=== PATIENT | female | born 1945 | race Caucasian/White ===

== ENCOUNTER 2017-04-10 09:31 | Inpatient (IN) | payer MEDICARE, OTHER ==
[~2017-04-10 09:31] MED LIST: Gabapentin 300 MG Cap PO ONE; Gentamicin 40 MG/ML 2 ML Vial ONE; Midazolam 1 MG/ML 2 ML SDV ONE; Povidone-Iodine 10% Soln 118.25 ML Bottle ONE; Propofol 200 MG/20 ML SDV ONE; Scopolamine 1.5 MG Transdermal Patch TOP SCH; fentaNYL 100 MCG/2 ML SDV ONE
[2017-04-10] MEDS ORDERED: Lactated Ringers 1,000 ML IV SCH (10:00)
[2017-04-10] MEDS ORDERED: ceFAZolin 2 GM in Sodium Chloride 0.9% 50 ML IV ONE (11:30)
[2017-04-10] MEDS ORDERED: Ropivacaine 49.25 ML, Ketorolac 30 MG, EPINEPHrine 0.5 MG, cloNIDine 80 MCG, Sodium Chl... INJECT ONE ×5 (11:45)
[2017-04-10] MEDS ORDERED: Ketamine 500 MG/5 ML MDV IV SCH (11:45)
[2017-04-10] MEDS: Tranexamic Acid 660 MG in Sodium Chloride 0.9% 50 ML IV SCH ×3 (12:06→13:48)
[2017-04-10] MEDS ORDERED: Propofol 200 MG/20 ML SDV ONE (12:21)
[2017-04-10] MEDS ORDERED: Lactated Ringers 1,000 ML ONE (12:41)
[2017-04-10] MEDS ORDERED: traMADol 50 MG Tab PO PRN (13:16)
[2017-04-10] MEDS ORDERED: Aluminum Hydroxide/Magnesium Hydroxide/Simethicone Susp 30 ML Cup PO PRN (13:16)
[2017-04-10] MEDS ORDERED: Diazepam 5 MG Tab PO PRN (13:16)
[2017-04-10] MEDS ORDERED: Naloxone 0.4 MG/ML SDV IVPUSH PRN (13:16)
[2017-04-10] MEDS ORDERED: Magnesium Hydroxide 400 MG/5 ML Susp 30 ML Cup PO PRN (13:16)
[2017-04-10] MEDS ORDERED: Sennosides 8.6 MG Tab PO PRN (13:16)
[2017-04-10] MEDS ORDERED: Ketorolac 30 MG/ML SDV IVPUSH PRN (13:16)
[2017-04-10] MEDS ORDERED: Ondansetron 4 MG/2 ML SDV IVPUSH PRN (13:16)
[2017-04-10] MEDS ORDERED: oxyCODONE 5 MG Tab PO PRN (13:16)
[2017-04-10] MEDS ORDERED: diphenhydrAMINE 50 MG/ML SDV IVPUSH PRN (13:16)
[2017-04-10] MEDS ORDERED: Morphine 2 MG/ML Syringe IVPUSH PRN (13:16)
[2017-04-10] MEDS ORDERED: Bisacodyl 5 MG Tab PO PRN (13:16)
[2017-04-10] MEDS ORDERED: Zolpidem 5 MG Tab PO PRN (13:16)
[2017-04-10] MEDS ORDERED: Acetaminophen 1,000 MG in Premix Bag 1 BAG IV ONE (13:30)
[2017-04-10] MEDS ORDERED: ceFAZolin 2 GM in Sodium Chloride 0.9% 50 ML IV SCH (13:30)
--- NOTE | 2017-04-10 13:34 | CR ---
Knee 1V or 2V Rt HISTORY: RIGHT TOTAL KNEE FINDINGS: Postoperative position and alignment right total knee arthroplasty with patella resurfacing appear sa tisfactory. No complication can be seen. Anterior skin lazaro are noted. Air in the joint is consist ent with the postoperative state. IMPRESSION: Satisfactory postoperative position and alignment right total knee arthroplasty with patella resurfac ing. No complication identified.
[2017-04-10] MEDS: VERIFY SCOPOLAMINE PATCH TOP SCH (16:34)
[2017-04-10] MEDS: ceFAZolin 2 GM in Sodium Chloride 0.9% 50 ML IV SCH (17:34)
[2017-04-10] MEDS: Acetaminophen/oxyCODONE 325-5 MG Tab PO PRN ×2 (17:35→23:09)
[2017-04-10] MEDS: Simvastatin 20 MG Tab PO SCH (17:36)
--- NOTE | 2017-04-10 19:26 | OR ---
DATE OF PROCEDURE: 04/10/2017 PREOPERATIVE DIAGNOSIS: Right knee primary osteoarthritis. POSTOPERATIVE DIAGNOSIS: Right knee primary osteoarthritis. PROCEDURE: Right knee total knee arthroplasty. MOVING PICTURE OPERATOR: BETTY Cortes. ANESTHESIA: Spinal sedation plus conscious sedation. FLUID: Lactated Ringer solution. ESTIMATED BLOOD LOSS: Less than 25 mL. COMPLICATIONS: None. SPECIMEN: None. DISCHARGE DISPOSITION: Stable to PACU. INSTRUMENTATION: Biomet Vanguard knee 62.5 mm femur, 34 mm patella, 67 mm tibial plate, 12 mm anterior stabilized tibial bearing polyethylene tibial insert. INDICATIONS: The patient is seen preoperatively in the clinic. She failed nonoperative treatment. Preoperative imaging confirmed the above-mentioned diagnosis. Risks and benefits of the procedure were explained to the patient. Informed consent was obtained. DETAILS OF PROCEDURE: The patient was seen preoperatively by myself and the Anesthesia staff in the preoperative holding area where the operative site was marked. She was brought to the operative suite by the anesthesia staff where spinal sedation was administered as well as conscious sedation. The right lower extremity had a well-padded tourniquet placed on the right thigh. The right lower extremity was then prepped and draped in a sterile manner. Time-out was called identifying the correct patient, correct procedure, the correct site, and antibiotics had begun within appropriate period of time. The right lower extremity was exsanguinated. Tourniquet was raised to 250 mmHg for 40 minutes and let down after cementing. A midline incision was made from the tibial tubercle three fingerbreadths proximal to the patella down to the deep fascia. A medial parapatellar arthrotomy was then made. Bleeding was controlled with Bovie electrocautery as well as an Aquamantys unit. The medial and proximal tibia were exposed using Bovie electrocautery. The infrapatellar fat pad was removed and a full synovectomy was performed. The patella was then everted, the knee flexed and then two perpendicular cuts were used on the patella. This measured 34 mm. Three holes were drilled in tibial. The patella trial was inserted. We then flexed the knee. I used a rongeur in the notch and then reamed the distal femur and then placed the intramedullary guide with a 9 mm distal cut at 5 degree valgus. I then pinned that guide in place and made my distal cut. I then removed the guide and then placed posterior condylar guide measuring 62.5. I then drilled holes for my chamfer block. I then removed the guide, placed the chamfer block and then made my anterior and posterior chamfer cuts. After that had been accomplished, I used an extramedullary guide in line with the tibial tubercle down to the 2nd ray and made my proximal tibia cut. I then used a laminar site acquisition manager medially and laterally to expose the posterior condyles. I then took osteophytes off medially and laterally using a curved osteotome. I removed any extra meniscus as well as extra synovium. I then anteriorized the tibia again, placed my tibial baseplate, which was pinned in place. I then reamed the proximal tibia and then tamped for the fins. I then inserted my femoral component and drilled the lugs for and inserted a 10 mm spacer, which provided good stability throughout range of motion. After we confirmed that, there was good range of motion of the knee with polyethylene trial inserted. We then removed all components, copiously irrigated with saline and then dried. We then cemented all of the components in place and kept the knee out in extension. While the cement dried, I let down the tourniquet to 40 minutes. After the cement had dried, I removed the polyethylene trial, removed any extra cement with the osteotome in any extra soft tissue that I saw with the Bovie electrocautery unit. We then inserted a 12 polyethylene trial which provided good stability, so I decided to use this as a final component. We inserted the final component and then placed the locking clip in. We then copiously irrigated with saline, tested range of motion, which was good and then we closed with two #5 Ethibond as well as #1 Stratafix and 3-0 Stratafix, followed by skin lazaro and a sterile dressing. The patient was then transferred to our hospital bed and taken to the PACU in stable condition. Sacha Hamilton DO /[id number]
[2017-04-10] MEDS ORDERED: Docusate Sodium 100 MG Cap PO SCH (21:00)
[2017-04-10] MEDS: Docusate Sodium 100 MG Cap PO SCH (23:06)
[2017-04-11] MEDS: ceFAZolin 2 GM in Sodium Chloride 0.9% 50 ML IV SCH ×2 (01:57→09:04)
[2017-04-11] MEDS: Acetaminophen/oxyCODONE 325-5 MG Tab PO PRN ×4 (07:38→21:24)
[2017-04-11] MEDS ORDERED: Non-Formulary Medication 1 Each (Gluc 2kcl/Chondr/Coll Hy/Hy Ac [Glucosamine & Chondroitin PO SCH (09:00)
[2017-04-11] MEDS ORDERED: Sodium Chloride 0.9% 10 ML Syringe FLUSH SCH (09:00)
[2017-04-11] MEDS ORDERED: atorvaSTATin 20 MG Tab PO SCH ×2 (09:00)
[2017-04-11] MEDS ORDERED: Non-Formulary Medication 1 Each (Simvastatin [Zocor] 40 MG) PO SCH (09:00)
[2017-04-11] MEDS ORDERED: Non-Formulary Medication 1 Each (Multivitamin [Multivitamins] 1 TAB) PO SCH (09:00)
[2017-04-11] MEDS: Docusate Sodium 100 MG Cap PO SCH ×2 (09:03→21:24)
[2017-04-11] MEDS: Multivitamins with Iron/Calcium/Folic Acid/Minerals Tab PO SCH (09:04)
[2017-04-11] MEDS: Fish Oil/Omega-3 Fatty Acids 1 Gm Cap PO SCH (09:04)
[2017-04-11] MEDS: Calcium Carbonate/Vitamin D3 1500 MG-400 Units Tab PO SCH (09:04)
[2017-04-11] MEDS: VERIFY SCOPOLAMINE PATCH TOP SCH (09:06)
[2017-04-11] MEDS: GLUCOSAMINE PO SCH (09:06)
[2017-04-11] MEDS: CHONDROITIN PO SCH (09:06)
--- NOTE | 2017-04-11 11:36 | PCM.PN ---
- General Info Date of Service: 04/11/17 Admission Dx/Problem (Free Text): at the pleasure of visiting with patient today in the hospital. She is status postop 1 day of right total knee replaced. She is doing very well. Patient continues to ambulate without any assistance. Pain is under control with oral pain medication. She is no issues at this time. Functional Status: Reports: Pain Controlled, Tolerating Diet, Ambulating, Urinating - Patient Data Vitals - Most Recent: Last Vital Signs Temp 36.3 C 04/11/17 11:17 Pulse 53 L 04/11/17 11:17 Resp 16 04/11/17 11:17 BP 117/82 04/11/17 11:17 Pulse Ox 97 04/11/17 11:17 Weight - Most Recent: 144 lb 12.8 oz I&O - Last 24 Hours: Intake & Output 04/10/17 04/11/17 04/11/17 22:59 06:59 14:59 Intake Total 910 051 5045 Output Total 900 1175 650 Balance -374 -669 650 Lab Results Last 24 Hours: Laboratory Results - last 24 hr 04/11/17 04/11/17 Range/Units 05:15 05:15 WBC 9.2 (4.5-11.0) K/uL RBC 3.67 (3.30-5.50) M/uL Hgb 11.6 L (12.0-15.0) g/dL Hct 36.7 (36.0-48.0) % MCV 100 H (80-98) fL MCH 32 H (27-31) pg MCHC 32 (32-36) % Plt Count 614 H (150-400) K/uL Neut % (Auto) 62 (36-66) % Lymph % (Auto) 27 (24-44) % [place] % (Auto) 8 H (2-6) % Eos % (Auto) 3 (2-4) % Baso % (Auto) 0 (0-1) % Sodium 139 L (140-148) mmol/L Potassium 4.2 (3.6-5.2) mmol/L Chloride 107 (100-108) mmol/L Carbon Dioxide 24 (21-32) mmol/L Anion Gap 12.2 (5.0-14.0) mmol/L BUN 21 H (7-18) mg/dL Creatinine 0.8 (0.6-1.0) mg/dL Est Cr Clr Drug Dosing 51.81 mL/min Estimated GFR (MDRD) > 60 (>60) Glucose 93 (74-106) mg/dL Calcium 8.3 L (8.5-10.1) mg/dL Total Bilirubin 0.2 (0.2-1.0) mg/dL AST 28 D (15-37) U/L ALT 31 (12-78) U/L Alkaline Phosphatase 50 (46-116) U/L Total Protein 5.7 L (6.4-8.2) g/dL Albumin 2.8 L (3.4-5.0) g/dL Globulin 2.9 (2.3-3.5) g/dL Albumin/Globulin Ratio 1.0 L (1.2-2.2) Med Orders - Current: Current Medications Al Hydroxide/Mg Hydroxide (Mag-Al Plus) 30 ml PO Q4H PRN PRN Reason: Constipation Aspirin (Ecotrin) 325 mg PO DAILY [facility] Bisacodyl (Dulcolax) 10 mg PO DAILY PRN PRN Reason: Constipation Calcium Carbonate (Caltrate 600+D 1500 Mg-400 Units) 1 tab PO DAILY [facility] Last Admin: 04/11/17 09:04 Dose: 1 tab Diazepam (Valium.) 5 mg PO Q6H PRN PRN Reason: Spasms Diphenhydramine HCl (Benadryl) 25 mg IVPUSH Q4H PRN PRN Reason: Itching Docusate Sodium (Colace) 100 mg PO BID [facility] Last Admin: 04/11/17 09:03 Dose: 100 mg Fish Oil (Fish Oil) 1 gm PO DAILY [facility] Last Admin: 04/11/17 09:04 Dose: 1 gm Lactated Ringer's (Ringers, Lactated) 1,000 mls @ 100 mls/hr IV ASDIRECTED [facility] Last Admin: 04/10/17 10:37 Dose: 100 mls/hr Ketorolac Tromethamine (Toradol) 15 mg IVPUSH Q8H PRN PRN Reason: Pain Stop: 04/15/17 13:17 Magnesium Hydroxide (Milk Of Magnesia) 30 ml PO BID PRN PRN Reason: Constipation Morphine Sulfate (Morphine) 2 mg IVPUSH Q2H PRN PRN Reason: Pain Multivitamins/Minerals (Thera M Plus) 1 tab PO DAILY [facility] Last Admin: 04/11/17 09:04 Dose: 1 tab Naloxone HCl (Narcan) 0.1 mg IVPUSH ONETIME PRN PRN Reason: Oversedation Verify Scopolamine (Patch) 0 each TOP DAILY [facility] Last Admin: 04/11/17 09:06 Dose: Not Given Glucosamine & (Chondroitin*Pom*) 1 tab PO DAILY [facility] Last Admin: 04/11/17 09:06 Dose: Not Given Ondansetron HCl (Zofran) 8 mg IVPUSH Q4H PRN PRN Reason: Nausea/Vomiting Oxycodone HCl (Oxycodone) 10 mg PO Q4H PRN PRN Reason: Pain Stop: 04/11/17 13:17 Oxycodone/Acetaminophen (Percocet 325-5 Mg) 2 tab PO Q4H PRN PRN Reason: Pain Last Admin: 04/11/17 07:38 Dose: 1 tab Scopolamine (Transderm-Scop) 1.5 mg TOP Q72H [facility] Stop: 04/13/17 07:30 Last Admin: 04/10/17 09:50 Dose: 1.5 mg Senna (Senna) 8.6 mg PO BID PRN PRN Reason: Constipation Simvastatin (Zocor) 40 mg PO DAILY@1800 [facility] Last Admin: 04/10/17 17:36 Dose: 40 mg Sodium Chloride (Saline Flush) 10 ml FLUSH DAILY [facility] Last Admin: 04/11/17 09:05 Dose: 10 ml Tramadol HCl (Ultram) 100 mg PO Q6H PRN PRN Reason: Pain Zolpidem Tartrate (Ambien) 5 mg PO BEDTIME PRN PRN Reason: Sleep Last Admin: 04/10/17 23:09 Dose: 5 mg Discontinued Medications Aspirin (Ecotrin) 325 mg PO DAILY [facility] Atorvastatin Calcium (Lipitor) 20 mg PO DAILY [facility] Atorvastatin Calcium (Lipitor) 20 mg PO DAILY [facility] Ropivacaine 49.25 ml/Ketorolac Tromethamine 30 mg/Epinephrine HCl 0.5 mg/ Clonidine HCl 80 mcg/ Sodium Chloride 48.45 ml 0 ml INJECT ONETIME ONE Stop: 04/10/17 11:46 Last Admin: 04/10/17 12:06 Dose: 100 ml Docusate Sodium (Colace) 100 mg PO BID [facility] Fentanyl (Sublimaze) Confirm Administered Dose 100 mcg .ROUTE .K-MED ONE Stop: 04/10/17 08:56 Gabapentin (Neurontin) 300 mg PO ONETIME ONE Stop: 04/10/17 09:31 Last Admin: 04/10/17 09:50 Dose: 300 mg Gentamicin Sulfate (Gentamicin) Confirm Administered Dose 240 mg .ROUTE .STK- [facility] ONE Stop: 04/10/17 06:33 Last Admin: 04/10/17 12:11 Dose: 240 mg Cefazolin Sodium 2 gm/ Sodium (Chloride) 50 mls @ 100 mls/hr IV ONETIME ONE Stop: 04/10/17 11:59 Last Admin: 04/10/17 11:18 Dose: 100 mls/hr Tranexamic Acid 660 mg/ Sodium (Chloride) 56.6 mls @ 226.4 mls/hr IV Q3H [facility] Stop: 04/10/17 14:59 Last Admin: 04/10/17 13:48 Dose: Not Given Lactated Ringer's (Ringers, Lactated) Confirm Administered Dose 1,000 mls @ as directed .ROUTE .[facility] ONE Stop: 04/10/17 12:42 Acetaminophen 1,000 mg/ Premix 100 mls @ 400 mls/hr IV NOW ONE Stop: 04/10/17 13:44 Last Admin: 04/10/17 13:31 Dose: 400 mls/hr Cefazolin Sodium 2 gm/ Sodium (Chloride) 50 mls @ 100 mls/hr IV Q8H [facility] Stop: 04/11/17 05:59 Last Admin: 04/10/17 17:48 Dose: Not Given Cefazolin Sodium 2 gm/ Sodium (Chloride) 50 mls @ 100 mls/hr IV Q8H [facility] Stop: 04/11/17 09:29 Last Admin: 04/11/17 09:04 Dose: 100 mls/hr Ketamine HCl (Ketalar) 25 mg IV ASDIRECTED [facility] Midazolam HCl (Versed 1 Mg/Ml) Confirm Administered Dose 2 mg .ROUTE .STK-MED ONE Stop: 04/10/17 08:56 Non-Formulary Medication (Calcium Carbonate/Vitamin D3 [Calcium 600 + Vit D 200] ) 1 tab PO DAILY [facility] Non-Formulary Medication (Gluc 2kcl/Chondr/Miguel Hy/Hy Ac [Glucosamine & Chondroitin Cap]) 1 tab PO DAILY [facility] Non-Formulary Medication (Multivitamin [Multivitamins]) 1 tab PO DAILY [facility] Non-Formulary Medication (Simvastatin [Zocor]) 40 mg PO DAILY [facility] Oxycodone/Acetaminophen (Percocet 325-5 Mg) 2 tab PO Q4H PRN PRN Reason: Pain Povidone Iodine (Betadine 10% Soln) Confirm Administered Dose 1 ml .ROUTE .STK- MED ONE Stop: 04/10/17 06:33 Last Admin: 04/10/17 12:12 Dose: 40 ml Propofol (Diprivan 20 Ml) Confirm Administered Dose 200 mg .ROUTE .STK-MED ONE Stop: 04/10/17 08:56 Propofol (Diprivan 20 Ml) Confirm Administered Dose 200 mg .ROUTE .STK-MED ONE Stop: 04/10/17 12:22 - Exam General: Alert, Oriented Extremities: Normal Inspection, Normal Range of Motion, Non-Tender, Normal Capillary Refill, Pedal Edema Peripheral Pulses: 2+: Dorsalis Pedis (L), Dorsalis Pedis (R) Skin: Warm, Dry, Intact Wound/Incisions: Healing Well, Dressing Dry and Intact Neurological: No New Focal Deficit Psy/Mental Status: Alert - Problem List Review Problem List Initiated/Reviewed/Updated: Yes - My Orders Last 24 Hours: My Active Orders 04/10/17 13:16 Alum Hydrox/Mag Hydrox/Simeth [Mag-Al Plus] 30 ml PO Q4H PRN Bisacodyl [Dulcolax] 10 mg PO DAILY PRN Diazepam [Valium] 5 mg PO Q6H PRN Ketorolac [Toradol] 15 mg IVPUSH Q8H PRN Magnesium Hydroxide [Milk of Magnesia] 30 ml PO BID PRN Morphine 2 mg IVPUSH Q2H PRN Naloxone [Narcan] 0.1 mg IVPUSH ONETIME PRN Ondansetron [Zofran] 8 mg IVPUSH Q4H PRN Sennosides [Senna] 8.6 mg PO BID PRN Zolpidem [Ambien] 5 mg PO BEDTIME PRN diphenhydrAMINE [Benadryl] 25 mg IVPUSH Q4H PRN oxyCODONE 10 mg PO Q4H PRN traMADol [Ultram] 100 mg PO Q6H PRN Resuscitation Status Routine 04/10/17 13:17 Patient Status [ADT] Routine Ambulate [RC] QID Intake and Output [RC] QSHIFT May Shower [RC] ASDIRECTED Neurovascular Check [RC] Q4HR Pulse Oximetry [RC] CONTINUOUS RT Incentive Spirometry [RC] Q2HWA Up to Chair [RC] QID Vital Signs [RC] Q4H Wound Care [RC] Q12H OT Evaluation and Treatment [CONS] Routine PT Evaluation and Treatment [CONS] Routine Sequential Compression Device [OM.PC] Per Unit Routine 04/10/17 13:30 Convert IV to Saline Lock [OM.PC] PER UNIT ROUTINE Ice Therapy [OM.PC] PER UNIT ROUTINE 04/10/17 17:17 Acetaminophen/oxyCODONE [Percocet 325-5 MG] 2 tab PO Q4H PRN 04/10/17 18:00 Simvastatin [Zocor] 40 mg PO DAILY@1800 04/10/17 21:00 Docusate Sodium [Colace] 100 mg PO BID 04/10/17 Lunch Advance Diet Instructions [DIET] 04/11/17 09:00 Calcium Carbonate/Vitamin D3 [Caltrate 600+D 1500 MG-400 Units] 1 tab PO DAILY Fish Oil/[place]-3 Fatty Acids [Fish Oil] 1 gm PO DAILY Gluc 2kcl/Chondr/Miguel Hy/Hy Ac [Glucosamine & Chondroitin Cap] 1 tab PO DAILY Multivitamins w-Iron/Ca/FA/Min [Thera M Plus] 1 tab PO DAILY Sodium Chloride 0.9% [Saline Flush] 10 ml FLUSH DAILY 04/11/17 13:17 Aspirin [Ecotrin] 325 mg PO DAILY - Plan Plan:: patient is doing well. She'll plan to discharge to the home tomorrow. We'll send her home on Percocet. She is to follow-up with us in 3 weeks. She will do outpatient physical therapy and walker. Patient is to notify us if she has any other issues.
[2017-04-11] MEDS ORDERED: Acetaminophen/oxyCODONE 325-5 MG Tab PO PRN (13:17)
[2017-04-11] MEDS ORDERED: Aspirin 325 MG Tab.EC PO SCH ×2 (13:17)
[2017-04-11] MEDS: Simvastatin 20 MG Tab PO SCH (17:19)
[2017-04-12 04:58] VITALS: BP 108/46
[2017-04-12] MEDS: Acetaminophen/oxyCODONE 325-5 MG Tab PO PRN ×2 (05:02→08:44)
[2017-04-12] MEDS: Docusate Sodium 100 MG Cap PO SCH (08:54)
[2017-04-12] MEDS: GLUCOSAMINE PO SCH (08:56)
[2017-04-12] MEDS: Fish Oil/Omega-3 Fatty Acids 1 Gm Cap PO SCH (08:56)
[2017-04-12] MEDS: Calcium Carbonate/Vitamin D3 1500 MG-400 Units Tab PO SCH (08:56)
[2017-04-12] MEDS: CHONDROITIN PO SCH (08:56)
[2017-04-12] MEDS: VERIFY SCOPOLAMINE PATCH TOP SCH (08:56)
[2017-04-12] MEDS: Multivitamins with Iron/Calcium/Folic Acid/Minerals Tab PO SCH (08:57)
--- NOTE | 2017-04-29 09:49 | PCM.DCSUM1 ---
Discharge Summary - Hospital Course Free Text/Narrative:: The patient was admitted on 04/10/2017 for right total knee arthroplasty. The procedure was performed that day. She tolerated the procedure well. She was kept in the hospital for physical therapy, occupational therapy, DVT prophylaxis , and in control. She did well with therapy. She met all of her goals and was discharged home in good condition. - Discharge Data Discharge Date: 04/12/17 Discharge Disposition: Home, Self-Care 01 Condition: Good - Patient Summary/Data Operative Procedure(s) Performed: right total knee arthroplasty Complications: none - Patient Instructions Diet: Usual Diet as Tolerated Activity: Apply Ice, As Tolerated, Full Weight Bearing Driving: Do Not Drive Showering/Bathing: November Shower Wound/Incision Care: Keep Operative Site/Wound Site Clean and Dry, Change Dressing Daily Notify Provider of: Fever, Increased Pain, Swelling and Redness, Drainage, Nausea and/or Vomiting - Discharge Plan Prescriptions/Med Rec: Acetaminophen/oxyCODONE [Percocet 325-5 MG] 1 tab PO Q4H PRN #90 tablet PRN Reason: Pain Aspirin [Ecotrin] 325 mg PO DAILY #30 tab.ec Home Medications: Home Meds Calcium Carbonate/Vitamin D3 [Calcium 600 + Vit D 200] 1 tab PO DAILY 03/21/17 [ History] Fish Oil/[place]-3 Fatty Acids [Fish Oil 1,000 MG] 1 tab PO DAILY 03/21/17 [ History] Gluc 2KCl/Chondr/Miguel Hy/Hy Ac [Glucosamine & Chondroitin Cap] 1 tab PO DAILY [History] Multivitamin [Multivitamins] 1 tab PO DAILY 03/21/17 [History] Simvastatin [Zocor] 40 mg PO DAILY 03/21/17 [History] Acetaminophen/oxyCODONE [Percocet 325-5 MG] 1 tab PO Q4H PRN #90 tablet [Rx] Aspirin [Ecotrin] 325 mg PO DAILY #30 tab.ec 04/12/17 [Rx] Other Amb Orders: PT Evaluation and Treatment [CONS] Location: Determined By Patient Patient Handouts: Preventing Constipation After Surgery Referrals: Sandi Marr, MICROBIOLOGY TECHNOLOGIST [Nurse Practitioner] - (3 week follow up) - Discharge Summary/Plan Comment DC Time >30 min.: No - General Info Functional Status: Reports: Pain Controlled - Review of Systems General: Reports: No Symptoms HEENT: Reports: No Symptoms Pulmonary: Reports: No Symptoms Cardiovascular: Reports: No Symptoms Gastrointestinal: Reports: No Symptoms Genitourinary: Reports: No Symptoms Musculoskeletal: Reports: Leg Pain, Joint Pain Skin: Reports: No Symptoms Neurological: Reports: Difficulty Walking Psychiatric: Reports: No Symptoms - Patient Data Weight - Most Recent: 144 lb 12.8 oz - Exam General: Reports: Alert, Oriented HEENT: Reports: Pupils Equal, Pupils Reactive, EOMI, Mucous Membr. Moist/[place] Neck: Reports: Supple Lungs: Reports: Normal Respiratory Effort Cardiovascular: Reports: Regular Rate, Regular Rhythm Extremities: Normal Inspection, No Pedal Edema, Normal Capillary Refill, Joint Swelling, Leg Pain Skin: Reports: Warm, Dry, Intact Wound/Incisions: Reports: Healing Well Neurological: Reports: No New Focal Deficit Psy/Mental Status: Reports: Alert, Normal Affect, Normal Mood Discharge Operative/Procedures - Procedures Performed Operations/Procedure Comment: right total knee arthroplasty *Q Meaningful Use (DIS) - VTE *Q VTE Criteria *Q: - Stroke *Q Stroke Criteria *Q: - AMI *Q AMI Criteria *Q:
== END 2017-04-12 09:14 | disposition home or self-care (01) | DRG 470 ==
LOC: JP.SDS 09:31 → JP.SDSSCHI 09:31 → EDSTATUS 11:30 → JP.MS 13:16
PROVIDERS: ADMIT Orthopaedic Surgery; ATTEND Orthopaedic Surgery
PROC: 0SRC0J9 Replacement of Right Knee Joint with Synthetic Substitute, Cemented, Open Approach (ICD-10-PCS; principal; 2017-04-10)
DX: M17.11 Unilateral primary osteoarthritis, right knee (principal); E78.00 Pure hypercholesterolemia, unspecified; Z88.1 Allergy status to other antibiotic agents; Z79.82 Long term (current) use of aspirin
CPT/HCPCS: 36415; 73560-26-RT; 73560-RT; 80053; 85025; 86850; 86900; 86901; 97110-GP; 97116-GP; 97161-GP; 97165-GO; 97530-GP; A9270-GY; C1713; C1776; J0131; J0171; J0690; J0735; J1580; J1885; J2250; J2704; J2795; J3010; J7050; J7120

== ENCOUNTER 2020-08-15 05:43 | Inpatient (IN) | payer MEDICARE ==
[2020-08-15] MEDS ORDERED: Nozin Nasal Sanitizer NASBOTH SCH ×2 (06:15→21:00)
[2020-08-15] MEDS ORDERED: Lactated Ringers 500 ML IV ONE (06:30)
[2020-08-15] MEDS ORDERED: Povidone-Iodine 10% Soln 118.25 ML Bottle ONE (06:39)
[2020-08-15] MEDS ORDERED: fentaNYL 100 MCG/2 ML SDV ONE (07:20)
[2020-08-15] MEDS ORDERED: Propofol 200 MG/20 ML SDV ONE (07:20)
[2020-08-15] MEDS ORDERED: Midazolam 1 MG/ML 2 ML SDV ONE ×2 (07:20→08:44)
[2020-08-15] MEDS ORDERED: ceFAZolin 2 GM in Premix Bag 1 BAG IV ONE (07:30)
[2020-08-15] MEDS ORDERED: Lactated Ringers 1,000 ML ONE (08:14)
[2020-08-15] MEDS ORDERED: ePHEDrine 50 MG/ML SDV ONE (08:17)
[2020-08-15] MEDS ORDERED: Ondansetron 4 MG/2 ML SDV IVPUSH PRN (09:21)
[2020-08-15] MEDS ORDERED: Magnesium Hydroxide 400 MG/5 ML Susp 30 ML Cup PO PRN (09:21)
--- NOTE | 2020-08-15 10:09 | CR ---
Hip Min 1V w Pelvis Rt CLINICAL HISTORY: Right hip arthroplasty FINDINGS: Patient is status post total right hip arthroplasty. Components appear well seated. There is some intra-articular and subcutaneous air. IMPRESSION: Status post recent total right hip arthroplasty
[2020-08-15] MEDS: Acetaminophen/oxyCODONE 325-5 MG Tab PO PRN ×3 (11:59→20:33)
[2020-08-15] MEDS: Morphine 2 MG/ML SYRINGE IV PRN ×3 (14:13→16:43)
[2020-08-15] MEDS: ceFAZolin 1 GM in Premix Bag 1 BAG IV SCH ×2 (14:14→21:53)
[2020-08-15] MEDS ORDERED: Sodium Chloride 0.9% 1,000 ML IV SCH (14:15)
[2020-08-15] MEDS ORDERED: Ketorolac 30 MG/ML SDV IVPUSH ONE (17:06)
[2020-08-15] MEDS ORDERED: Morphine 2 MG/ML SYRINGE IV PRN (17:07)
[2020-08-15] MEDS: Nozin Nasal Sanitizer NASBOTH SCH (20:24)
[2020-08-15] MEDS: Hydroxyurea 500 MG Cap PO SCH (20:25)
[2020-08-15] MEDS: Simvastatin 20 MG Tab PO SCH (20:26)
[2020-08-16] MEDS: Acetaminophen/oxyCODONE 325-5 MG Tab PO PRN ×2 (00:56→06:41)
[2020-08-16] MEDS: ceFAZolin 1 GM in Premix Bag 1 BAG IV SCH (05:41)
[2020-08-16] MEDS: Enoxaparin 30 MG/0.3 ML Syringe SUBCUT SCH ×2 (09:56→10:50)
[2020-08-16] MEDS: Nozin Nasal Sanitizer NASBOTH SCH ×2 (09:56→20:29)
[2020-08-16] MEDS: Hydroxyurea 500 MG Cap PO SCH ×2 (09:56→20:32)
[2020-08-16] MEDS: Docusate Sodium 100 MG Cap PO SCH (09:56)
[2020-08-16] MEDS: Simvastatin 20 MG Tab PO SCH (10:49)
[2020-08-16] MEDS: Acetaminophen 325 MG Tab PO PRN (10:53)
--- NOTE | 2020-08-16 13:09 | PCM.SURGPN ---
- General Info Date of Service: 08/16/20 Date of Surgery/Procedure: 08/15/20 POD#: 1 Post-Op Diagnosis: right hip total arthroplasty Functional Status: Reports: Pain Controlled, Tolerating Diet - Review of Systems Musculoskeletal: Reports: Leg Pain (right ), Joint Pain (right hip ) Neurological: Reports: Confusion - Patient Data Vitals - Most Recent: Last Vital Signs Temp 97.5 F 08/16/20 11:00 Pulse 58 L 08/16/20 11:00 Resp 18 08/16/20 11:00 BP 131/54 L 08/16/20 11:00 Pulse Ox 100 08/16/20 11:00 Weight - Most Recent: 144 lb 4.787 oz I&O - Last 24 Hours: Intake & Output 08/15/20 08/16/20 08/16/20 22:59 06:59 14:59 Intake Total 1482 1927 450 Output Total 500 1600 Balance 982 327 450 Lab Results Last 24 Hrs: Laboratory Results - last 24 hr 08/16/20 Range/Units 04:56 WBC 3.2 L (4.5-11.0) K/uL RBC 2.33 L (3.30-5.50) M/uL Hgb 9.1 L D (12.0-15.0) g/dL Hct 29.4 L (36.0-48.0) % MCV 126 H (80-98) fL MCH 39 H (27-31) pg MCHC 31 L (32-36) % Plt Count 296 (150-400) K/uL Med Orders - Current: Current Medications Acetaminophen (Tylenol) 650 mg PO Q4H PRN PRN Reason: Pain/Fever Last Admin: 08/16/20 10:53 Dose: 650 mg Documented by: Hydrocodone Bitart/Acetaminophen ([place] 325-5 Mg) 1 tab PO Q4H PRN PRN Reason: Pain (mild 1-3) Bandage/Support Products ( Nasal Chief Green Officer) 1 applic NASBOTH BID [facility] Stop: 08/22/20 21:01 Last Admin: 08/16/20 09:56 Dose: 1 applic Documented by: Docusate Sodium (Colace) 100 mg PO DAILY [facility] Last Admin: 08/16/20 09:56 Dose: 100 mg Documented by: Enoxaparin Sodium (Lovenox) 30 mg SUBCUT DAILY [facility] Last Admin: 08/16/20 10:50 Dose: 30 mg Documented by: Hydroxyurea (Hydrea) 500 mg PO BID [facility] Last Admin: 08/16/20 09:56 Dose: 500 mg Documented by: Sodium Chloride (Normal Saline) 1,000 mls @ 125 mls/hr IV ASDIRECTED [facility] Last Admin: 08/15/20 14:16 Dose: 125 mls/hr Documented by: Magnesium Hydroxide (Milk Of Magnesia) 30 ml PO Q6H PRN PRN Reason: Stool Softener Morphine Sulfate (Morphine) 2 mg IV Q1H PRN PRN Reason: Pain Last Admin: 08/15/20 18:31 Dose: 2 mg Documented by: Ondansetron HCl (Zofran) 4 mg IVPUSH Q6H PRN PRN Reason: Nausea/Vomiting Oxycodone/Acetaminophen (Percocet 325-5 Mg) 1 - 2 tab PO Q4H PRN PRN Reason: Pain Last Admin: 08/16/20 06:41 Dose: 2 tab Documented by: Simvastatin (Zocor) 40 mg PO DAILY [facility] Last Admin: 08/16/20 10:49 Dose: 40 mg Documented by: Discontinued Medications Bandage/Support Products ( Nasal Chief Green Officer) 1 applic NASBOTH BID [facility] Last Admin: 08/15/20 06:32 Dose: 1 applic Documented by: Ephedrine Sulfate (Ephedrine Sulfate) Confirm Administered Dose 50 mg .ROUTE .STK-MED ONE Stop: 08/15/20 08:18 Fentanyl (Sublimaze) Confirm Administered Dose 100 mcg .ROUTE .STK-MED ONE Stop: 08/15/20 07:21 Cefazolin Sodium/Dextrose 2 gm (/ Premix) 50 mls @ 100 mls/hr IV ONETIME ONE Stop: 08/15/20 07:59 Last Admin: 08/15/20 07:50 Dose: 100 mls/hr Documented by: Lactated Ringer's (Ringers, Lactated) 500 mls @ 999 mls/hr IV ASDIRECTED ONE Stop: 08/15/20 07:00 Last Admin: 08/15/20 06:47 Dose: 999 mls/hr Documented by: Lactated Ringer's (Ringers, Lactated) Confirm Administered Dose 1,000 mls @ as directed .ROUTE .STK-MED ONE Stop: 08/15/20 08:15 Cefazolin Sodium/Dextrose 1 gm (/ Premix) 50 mls @ 100 mls/hr IV Q8H [facility] Stop: 08/16/20 06:29 Last Admin: 08/16/20 05:41 Dose: 100 mls/hr Documented by: Ketorolac Tromethamine (Toradol) 30 mg IVPUSH ONETIME ONE Stop: 08/15/20 17:07 Last Admin: 08/15/20 17:30 Dose: 30 mg Documented by: Midazolam HCl (Versed 1 Mg/Ml) Confirm Administered Dose 2 mg .ROUTE .STK-MED ONE Stop: 08/15/20 07:21 Midazolam HCl (Versed 1 Mg/Ml) Confirm Administered Dose 2 mg .ROUTE .STK-MED ONE Stop: 08/15/20 08:45 Morphine Sulfate (Morphine) 1 mg IV Q1H PRN PRN Reason: Pain Last Admin: 08/15/20 16:43 Dose: 1 mg Documented by: Povidone Iodine (Betadine 10% Soln) Confirm Administered Dose 1 ml .ROUTE .STK- MED ONE Stop: 08/15/20 06:40 Last Admin: 08/15/20 08:32 Dose: 30 ml Documented by: Propofol (Diprivan 20 Ml) Confirm Administered Dose 200 mg .ROUTE .STK-MED ONE Stop: 08/15/20 07:21 - Exam Wound/Incisions: Dressing Dry and Intact General: Other (Alert, some disorientation to place this morning, seems to be improving this afternoon ) Extremities: Leg Pain (right ), Limited Range of Motion Sepsis Event Note - Evaluation Sepsis Screening Result: No Definite Risk - Focused Exam Vital Signs: Vital Signs Temp Pulse Resp BP Pulse Ox Pulse Ox 08/16/20 11:00 97.5 F 58 L 18 131/54 L 100 08/16/20 09:22 98 97 08/16/20 07:45 96.7 F L 63 18 106/47 L 97 08/16/20 02:57 98.4 F 75 18 124/42 L 96 - Problem List & Annotations (1) Status post total hip replacement, right SNOMED Code(s): 405128580641, 080284853714 Code(s): Z96.641 - PRESENCE OF RIGHT ARTIFICIAL HIP JOINT Status: Acute Current Visit: Yes - Problem List Review Problem List Initiated/Reviewed/Updated: Yes - My Orders Last 24 Hours: Active Orders 24 hr Category Date Time Status Patient Status [ADT] Routine ADT 08/15/20 12:26 Active Ambulate [RC] PER UNIT ROUTINE Care 08/15/20 12:26 Active Antiembolic Devices [RC] .Routine Care 08/15/20 12:27 Active Head of Bed Elevation [RC] ASDIRECTED Care 08/15/20 12:26 Active Intake and Output [RC] PER UNIT ROUTINE Care 08/15/20 12:26 Active Notify Provider Intake and Out [RC] ASDIRECTED Care 08/15/20 12:27 Active Notify Provider Vital Signs [RC] ASDIRECTED Care 08/15/20 12:26 Active Notify Provider Vital Signs [RC] ASDIRECTED Care 08/15/20 12:27 Active Oxygen Therapy [RC] PRN Care 08/15/20 12:26 Active Up to Chair [RC] QID Care 08/15/20 12:26 Active Vital Signs [RC] Q4H Care 08/15/20 12:26 Active Wound Care [RC] Q12H Care 08/15/20 12:26 Active Consult to Case Management/Alum Mixer [CONS] Cons 08/15/20 12:27 Active Routine PT Evaluation and Treatment [CONS] Routine Cons 08/15/20 12:26 Active PT Evaluation and Treatment [CONS] Routine Cons 08/15/20 12:27 Active Regular Diet [DIET] Diet 08/15/20 Dinner Active Docusate Sodium [Colace] Med 08/16/20 09:00 Active 100 mg PO DAILY Enoxaparin [Lovenox] Med 08/16/20 09:00 Active 30 mg SUBCUT DAILY Hydroxyurea [Hydrea] Med 08/15/20 21:00 Active 500 mg PO BID Morphine Med 08/15/20 17:07 Active 2 mg IV Q1H PRN Nozin [ Nasal Chief Green Officer] Med 08/15/20 21:00 Active 1 applic NASBOTH BID Simvastatin [Zocor] Med 08/16/20 09:00 Active 40 mg PO DAILY Sodium Chloride 0.9% [Normal Saline] 1,000 ml Med 08/15/20 14:15 Active IV ASDIRECTED Antiembolic Hose [OM.PC] Per Unit Routine Oth 08/15/20 12:26 Ordered DME for Inpatients [OM.PC] Routine Oth 08/15/20 12:26 Ordered DVT/VTE Prophylaxis Reflex [OM.PC] Routine Oth 08/15/20 12:26 Ordered Ice Therapy [OM.PC] Per Unit Routine Oth 08/15/20 12:26 Ordered Oral Care [OM.PC] Routine Oth 08/15/20 12:26 Ordered Sequential Compression Device [OM.PC] Routine Oth 08/15/20 12:27 Ordered Weight bearing status [OM.PC] Routine Oth 08/15/20 12:26 Ordered Resuscitation Status Routine Resus Stat 08/15/20 12:26 Ordered Medication Orders Acetaminophen (Tylenol) 650 mg PO Q4H PRN PRN Reason: Pain/Fever Last Admin: 08/16/20 10:53 Dose: 650 mg Documented by: RON Hydrocodone Bitart/Acetaminophen ([place] 325-5 Mg) 1 tab PO Q4H PRN PRN Reason: Pain (mild 1-3) Bandage/Support Products ( Nasal Chief Green Officer) 1 applic NASBOTH BID [facility] Stop: 08/22/20 21:01 Last Admin: 08/16/20 09:56 Dose: 1 applic Documented by: Admin: 08/15/20 20:24 Dose: 1 applic Documented by: EBONY Docusate Sodium (Colace) 100 mg PO DAILY [facility] Last Admin: 08/16/20 09:56 Dose: 100 mg Documented by: RON Enoxaparin Sodium (Lovenox) 30 mg SUBCUT DAILY [facility] Last Admin: 08/16/20 10:50 Dose: 30 mg Documented by: RON Hydroxyurea (Hydrea) 500 mg PO BID [facility] Last Admin: 08/16/20 09:56 Dose: 500 mg Documented by: Admin: 08/15/20 20:25 Dose: 500 mg Documented by: EBONY Sodium Chloride (Normal Saline) 1,000 mls @ 125 mls/hr IV ASDIRECTED [facility] Last Admin: 08/15/20 14:16 Dose: 125 mls/hr Documented by: LD Magnesium Hydroxide (Milk Of Magnesia) 30 ml PO Q6H PRN PRN Reason: Stool Softener Morphine Sulfate (Morphine) 2 mg IV Q1H PRN PRN Reason: Pain Last Admin: 08/15/20 18:31 Dose: 2 mg Documented by: EBONY Ondansetron HCl (Zofran) 4 mg IVPUSH Q6H PRN PRN Reason: Nausea/Vomiting Oxycodone/Acetaminophen (Percocet 325-5 Mg) 1 - 2 tab PO Q4H PRN PRN Reason: Pain Last Admin: 08/16/20 06:41 Dose: 2 tab Documented by: Admin: 08/16/20 00:56 Dose: 2 tab Documented by: Admin: 08/15/20 20:33 Dose: 2 tab Documented by: Admin: 08/15/20 16:39 Dose: 2 tab Documented by: Admin: 08/15/20 11:59 Dose: 2 tab Documented by: LD Simvastatin (Zocor) 40 mg PO DAILY [facility] Last Admin: 08/16/20 10:49 Dose: 40 mg Documented by: Admin: 08/15/20 20:26 Dose: 40 mg Documented by: EBONY - Assessment Assessment (Free Text/Narrative):: Assessment: Patient is a pleasant 75 y/o female, s/p right total hip replacement, POD #1. Patient tolerated surgery well with no complications. Patient did have some difficulty with post-operative pain management. Additional pain medication needed yesterday evening; administered 30 mg IV Toradol and increased morphine dosage from 1 mg to 2 mg. This improved patients pain level; she denied any pain this morning. After increased pain medications, nurses report some confusion and disorientation to place. With simple redirection, patient remembers where she is. Confusion appears to be improving throughout the day. Is tolerating regular diet well with no nausea/emesis. Has gotten into chair with nursing assistance, but has not yet completed physical therapy or ambulation of significant distance. Did have some orthostatic hypotension per nursing when getting into chair, but has since resolved, vitals within normal limits. Patient status changed from same day surgery to inpatient; patient requires additional physical and occupational therapy services at this time to be safe for discharge to home. Exam: Right hip dressing dry and intact. No significant pedal edema. Abductor pillow in place. Will perform dressing change tomorrow and further inspect incision. Plan: -Delgado can be discontinued after PT if patient is able to ambulate -Continue to monitor mental status for any increased confusion/disorientation -Ambulate with physical therapy today and continue with physical therapy and occupational therapy services while in the hospital -Orthopedic provider will perform dressing change tomorrow -Anticipate discharge to home with home health services when able to ambulate safely and perform ADLs with minimal assistance
[2020-08-16] MEDS: Ketorolac 30 MG/ML SDV IVPUSH PRN (17:48)
[2020-08-17] MEDS: Ketorolac 30 MG/ML SDV IVPUSH PRN ×2 (05:09→20:12)
[2020-08-17] MEDS: Acetaminophen 325 MG Tab PO PRN ×4 (05:10→20:13)
[2020-08-17] MEDS: Hydroxyurea 500 MG Cap PO SCH ×2 (09:05→20:19)
[2020-08-17] MEDS: Enoxaparin 30 MG/0.3 ML Syringe SUBCUT SCH (09:05)
[2020-08-17] MEDS: Nozin Nasal Sanitizer NASBOTH SCH ×2 (09:05→20:19)
[2020-08-17] MEDS: Docusate Sodium 100 MG Cap PO SCH (09:05)
[2020-08-17] MEDS: Simvastatin 20 MG Tab PO SCH (09:06)
--- NOTE | 2020-08-17 12:26 | PCM.SURGPN ---
- General Info Date of Service: 08/17/20 Date of Surgery/Procedure: 08/15/20 POD#: 2 Post-Op Diagnosis: right hip osteoarthritis Functional Status: Reports: Pain Controlled, Tolerating Diet, Ambulating - Review of Systems General: Reports: No Symptoms HEENT: Reports: No Symptoms Pulmonary: Reports: No Symptoms Cardiovascular: Reports: No Symptoms Gastrointestinal: Reports: No Symptoms Genitourinary: Reports: No Symptoms Musculoskeletal: Reports: Leg Pain (right ), Joint Pain (right hip ) Skin: Reports: No Symptoms Neurological: Reports: Confusion (improved from yesterday ) Psychiatric: Reports: Confusion - Patient Data Vitals - Most Recent: Last Vital Signs Temp 97.5 F 08/17/20 10:47 Pulse 69 08/17/20 10:47 Resp 16 08/17/20 10:47 BP 129/51 L 08/17/20 10:47 Pulse Ox 98 08/17/20 10:47 Weight - Most Recent: 144 lb 4.787 oz I&O - Last 24 Hours: Intake & Output 08/16/20 08/17/20 08/17/20 22:59 06:59 14:59 Intake Total 450 500 240 Output Total 800 1100 Balance -350 -600 240 Med Orders - Current: Current Medications Acetaminophen (Tylenol) 650 mg PO Q4H PRN PRN Reason: Pain/Fever Last Admin: 08/17/20 09:13 Dose: 650 mg Documented by: Hydrocodone Bitart/Acetaminophen ([place] 325-5 Mg) 1 tab PO Q4H PRN PRN Reason: Pain (mild 1-3) Bandage/Support Products ( Nasal Record Searcher) 1 applic NASBOTH BID [facility] Stop: 08/22/20 21:01 Last Admin: 08/17/20 09:05 Dose: 1 applic Documented by: Docusate Sodium (Colace) 100 mg PO DAILY [facility] Last Admin: 08/17/20 09:05 Dose: 100 mg Documented by: Enoxaparin Sodium (Lovenox) 30 mg SUBCUT DAILY [facility] Last Admin: 08/17/20 09:05 Dose: 30 mg Documented by: Hydroxyurea (Hydrea) 500 mg PO BID [facility] Last Admin: 08/17/20 09:05 Dose: 500 mg Documented by: Sodium Chloride (Normal Saline) 1,000 mls @ 125 mls/hr IV ASDIRECTED [facility] Last Admin: 08/15/20 14:16 Dose: 125 mls/hr Documented by: Ketorolac Tromethamine (Toradol) 15 mg IVPUSH Q8H PRN PRN Reason: Pain (mild 1-3) Stop: 08/20/20 16:35 Last Admin: 08/17/20 05:09 Dose: 15 mg Documented by: Magnesium Hydroxide (Milk Of Magnesia) 30 ml PO Q6H PRN PRN Reason: Stool Softener Morphine Sulfate (Morphine) 2 mg IV Q1H PRN PRN Reason: Pain Last Admin: 08/15/20 18:31 Dose: 2 mg Documented by: Ondansetron HCl (Zofran) 4 mg IVPUSH Q6H PRN PRN Reason: Nausea/Vomiting Simvastatin (Zocor) 40 mg PO DAILY [facility] Last Admin: 08/17/20 09:06 Dose: 40 mg Documented by: Discontinued Medications Bandage/Support Products ( Nasal Record Searcher) 1 applic NASBOTH BID [facility] Last Admin: 08/15/20 06:32 Dose: 1 applic Documented by: Ephedrine Sulfate (Ephedrine Sulfate) Confirm Administered Dose 50 mg .ROUTE .STK-MED ONE Stop: 08/15/20 08:18 Fentanyl (Sublimaze) Confirm Administered Dose 100 mcg .ROUTE .STK-MED ONE Stop: 08/15/20 07:21 Cefazolin Sodium/Dextrose 2 gm (/ Premix) 50 mls @ 100 mls/hr IV ONETIME ONE Stop: 08/15/20 07:59 Last Admin: 08/15/20 07:50 Dose: 100 mls/hr Documented by: Lactated Ringer's (Ringers, Lactated) 500 mls @ 999 mls/hr IV ASDIRECTED ONE Stop: 08/15/20 07:00 Last Admin: 08/15/20 06:47 Dose: 999 mls/hr Documented by: Lactated Ringer's (Ringers, Lactated) Confirm Administered Dose 1,000 mls @ as directed .ROUTE .STK-MED ONE Stop: 08/15/20 08:15 Cefazolin Sodium/Dextrose 1 gm (/ Premix) 50 mls @ 100 mls/hr IV Q8H [facility] Stop: 08/16/20 06:29 Last Admin: 08/16/20 05:41 Dose: 100 mls/hr Documented by: Ketorolac Tromethamine (Toradol) 30 mg IVPUSH ONETIME ONE Stop: 08/15/20 17:07 Last Admin: 08/15/20 17:30 Dose: 30 mg Documented by: Midazolam HCl (Versed 1 Mg/Ml) Confirm Administered Dose 2 mg .ROUTE .STK-MED ONE Stop: 08/15/20 07:21 Midazolam HCl (Versed 1 Mg/Ml) Confirm Administered Dose 2 mg .ROUTE .STK-MED ONE Stop: 08/15/20 08:45 Morphine Sulfate (Morphine) 1 mg IV Q1H PRN PRN Reason: Pain Last Admin: 08/15/20 16:43 Dose: 1 mg Documented by: Oxycodone/Acetaminophen (Percocet 325-5 Mg) 1 - 2 tab PO Q4H PRN PRN Reason: Pain Last Admin: 08/16/20 06:41 Dose: 2 tab Documented by: Povidone Iodine (Betadine 10% Soln) Confirm Administered Dose 1 ml .ROUTE .STK- MED ONE Stop: 08/15/20 06:40 Last Admin: 08/15/20 08:32 Dose: 30 ml Documented by: Propofol (Diprivan 20 Ml) Confirm Administered Dose 200 mg .ROUTE .STK-MED ONE Stop: 08/15/20 07:21 - Exam Wound/Incisions: Healing Well, Dressing Dry and Intact, No Drainage General: Alert, Cooperative, No Acute Distress Extremities: Pedal Edema (right ), Leg Pain (right ), Limited Range of Motion Skin: Dry, Intact Psy/Mental Status: Alert Sepsis Event Note - Evaluation Sepsis Screening Result: No Definite Risk - Focused Exam Vital Signs: Vital Signs Temp Pulse Resp BP Pulse Ox 08/17/20 10:47 97.5 F 69 16 129/51 L 98 08/17/20 07:36 98.1 F 71 16 149/86 H 97 08/17/20 04:00 98.6 F 71 18 139/57 L 95 - Problem List & Annotations (1) Status post total hip replacement, right SNOMED Code(s): 946915800624, 186517203183 Code(s): Z96.641 - PRESENCE OF RIGHT ARTIFICIAL HIP JOINT Status: Acute Current Visit: Yes (2) Acute post-hemorrhagic anemia SNOMED Code(s): 155285937 Code(s): D62 - ACUTE POSTHEMORRHAGIC ANEMIA Status: Acute Current Visit: Yes - Problem List Review Problem List Initiated/Reviewed/Updated: Yes - My Orders Last 24 Hours: Active Orders 24 hr Category Date Time Status Admission Status [Patient Status] [ADT] Routine ADT 08/16/20 13:01 Active DC Delgado Catheter [Urinary Catheter Removal] [RC] PER Care 08/17/20 11:31 Active UNIT ROUTINE Ketorolac [Toradol] Med 08/16/20 16:34 Active 15 mg IVPUSH Q8H PRN Medication Orders Acetaminophen (Tylenol) 650 mg PO Q4H PRN PRN Reason: Pain/Fever Last Admin: 08/17/20 09:13 Dose: 650 mg Documented by: Admin: 08/17/20 05:10 Dose: 650 mg Documented by: Admin: 08/16/20 10:53 Dose: 650 mg Documented by: RON Hydrocodone Bitart/Acetaminophen ([place] 325-5 Mg) 1 tab PO Q4H PRN PRN Reason: Pain (mild 1-3) Bandage/Support Products ( Nasal Record Searcher) 1 applic NASBOTH BID [facility] Stop: 08/22/20 21:01 Last Admin: 08/17/20 09:05 Dose: 1 applic Documented by: Admin: 08/16/20 20:29 Dose: 1 applic Documented by: Admin: 08/16/20 09:56 Dose: 1 applic Documented by: Admin: 08/15/20 20:24 Dose: 1 applic Documented by: EBONY Docusate Sodium (Colace) 100 mg PO DAILY [facility] Last Admin: 08/17/20 09:05 Dose: 100 mg Documented by: Admin: 08/16/20 09:56 Dose: 100 mg Documented by: RON Enoxaparin Sodium (Lovenox) 30 mg SUBCUT DAILY [facility] Last Admin: 08/17/20 09:05 Dose: 30 mg Documented by: Admin: 08/16/20 10:50 Dose: 30 mg Documented by: RON Hydroxyurea (Hydrea) 500 mg PO BID [facility] Last Admin: 08/17/20 09:05 Dose: 500 mg Documented by: Admin: 08/16/20 20:32 Dose: 500 mg Documented by: Admin: 08/16/20 09:56 Dose: 500 mg Documented by: Admin: 08/15/20 20:25 Dose: 500 mg Documented by: EBONY Sodium Chloride (Normal Saline) 1,000 mls @ 125 mls/hr IV ASDIRECTED [facility] Last Admin: 08/15/20 14:16 Dose: 125 mls/hr Documented by: LD Ketorolac Tromethamine (Toradol) 15 mg IVPUSH Q8H PRN PRN Reason: Pain (mild 1-3) Stop: 08/20/20 16:35 Last Admin: 08/17/20 05:09 Dose: 15 mg Documented by: Admin: 08/16/20 17:48 Dose: 15 mg Documented by: RON Magnesium Hydroxide (Milk Of Magnesia) 30 ml PO Q6H PRN PRN Reason: Stool Softener Morphine Sulfate (Morphine) 2 mg IV Q1H PRN PRN Reason: Pain Last Admin: 08/15/20 18:31 Dose: 2 mg Documented by: EBONY Ondansetron HCl (Zofran) 4 mg IVPUSH Q6H PRN PRN Reason: Nausea/Vomiting Simvastatin (Zocor) 40 mg PO DAILY [facility] Last Admin: 08/17/20 09:06 Dose: 40 mg Documented by: Admin: 08/16/20 10:49 Dose: 40 mg Documented by: Admin: 08/15/20 20:26 Dose: 40 mg Documented by: EBONY - Assessment Assessment (Free Text/Narrative):: Patient is a pleasant 75 y/o female, s/p R total hip arthroplasty, POD #2. Patients surgery went well with no complications. Struggled with pain control the evening of the operation; patient was given additional Toradol and Morphine. This seemed to make the patient very confused through the evening of the operation and into POD #1. Patient was often confused about where she was and what operation she had done. This confusion and disorientation are much improved today, on POD #2. Patient is alert and oriented to self, place, and time. Due to confusion and orthostatic hypotension, sufficient therapy was not completed on POD#1 and patient status was changed from same day surgery to inpatient to allow continuation of therapy services prior to discharge. Patient was able to participate in physical therapy today; ambulated 150 feet with FWW. Patient also participated in occupational therapy today; is requesting sock aid for home. lives with patient, but he is recovering from a recent heart attack and will not be able to provide significant assistance upon discharge. Delgado was discontinued today, on POD #2. This was not completed on POD#1 due to lack of ambulation abilities. Patient has been tolerating regular diet well with no nausea/emesis. Reports pain is 3/10 this afternoon during dressing change. Exam: Right hip incision intact, dried blood on dressing. No new drainage, erythema, nor warmth to touch. There is ecchymosis around the incision on R hip. Right foot with mild pedal edema. Plan: * Dressing change performed by orthopedic provider this afternoon * Delgado was pulled this afternoon * Continue physical and occupational therapy services while in the hospital; plan to work on stairs with physical therapy tomorrow morning * Continue to monitor mental status for any further confusion/disorientation * Anticipate discharge to home with home health tomorrow morning, pending safe ambulation per physical therapy, ability to perform ADLs, and mental status A&Ox3.
[2020-08-18] MEDS: Acetaminophen/HYDROcodone 325-5 MG Tab PO PRN ×2 (07:04→13:36)
[2020-08-18] MEDS: Nozin Nasal Sanitizer NASBOTH SCH (08:01)
[2020-08-18] MEDS: Docusate Sodium 100 MG Cap PO SCH (08:02)
[2020-08-18] MEDS: Simvastatin 20 MG Tab PO SCH (08:02)
[2020-08-18] MEDS: Hydroxyurea 500 MG Cap PO SCH (08:03)
[2020-08-18] MEDS: Enoxaparin 30 MG/0.3 ML Syringe SUBCUT SCH (08:03)
--- NOTE | 2020-08-18 10:25 | OR ---
DATE OF PROCEDURE: 08/15/2020 SURGEON: Serge Deal MD PREOPERATIVE DIAGNOSIS: Osteoarthritis, right hip. POSTOPERATIVE DIAGNOSIS: Osteoarthritis, right hip. PROCEDURE: Right total hip arthroplasty utilizing Olga M/L taper stem, size 6 standard 54 mm trabecular metal cup with elevated liner and a 0 neck length 36 mm head. EMERGENCY VEHICLE DRIVER: DEWAYNE Arthur ANESTHESIA: Spinal with sedation. INDICATIONS: Radha is a 75-year-old female with a history of progressive right hip pain over the past several months. She has failed conservative treatment. X-rays and examination are consistent with end-stage osteoarthritis with joint space collapse and limited range of motion. She now presents for right total hip arthroplasty. Risks, benefits, and potential complications of the procedure were discussed. Surgical assistance of a physician program services assistant was utilized in order to treat this patient and was instrumental in retraction, exposure, and manipulation of the leg during trial reductions. DESCRIPTION OF PROCEDURE: After adequate anesthesia was obtained, the patient was placed in the lateral decubitus position and secured with the hip positioner. Right hip and leg were then prepped and draped in a sterile fashion. An incision was made over the greater trochanter and carried down through the subcutaneous tissues, and hemostasis was obtained with electrocautery. Tensor fascia was split in line with its fibers and a Charnley retractor was placed. The patient had limited internal rotation. Short external rotators were taken off the greater trochanter and the capsule was then divided. This was split in a T-fashion and the hip was then dislocated. This showed significant arthritic change of the femoral head with osteophytes. Retractor was placed about the femoral neck and an oscillating saw used to complete the femoral neck cut. Retractor was then placed about the acetabulum. Acetabular labrum was excised. Soft tissues were cleared from the central acetabulum and the acetabulum was sequentially reamed to 54 mm. A 54 mm trabecular metal cup was press-fit into position. Additional fixation was obtained with an acetabular screw which had excellent purchase. This was irrigated and an elevated liner was utilized. Attention was then turned to the femur. A box osteotome was used to remove the lateral femoral neck cortex. This was followed by a hand awl and a lateralizing reamer. The proximal femur was sequentially broached up to a size 7.5 which initially had a very good fit; however, with placement of the trial neck and head, center of rotation was slightly above the level of the top of the trochanter. The trial was removed. The femoral neck was re-cut slightly lower and then broach was replaced once again with a size 6 stem, left in place. A trial reduction was then done with a -3.5 neck length. This reduced and had full extension, but did show some slight tendency for instability at flexion, adduction, and internal rotation beyond approximately 30 to 35 degrees. A 2nd reduction was then done with a 0 neck length. This provided much better stability, still had full extension, and did not clinically have significant limb-length discrepancy. The trials were removed, hip was irrigated, a size 6 stem was tapped into position. Trial reductions were again done with the 0 neck length chosen. This was reduced without difficulty and then irrigated. Saline irrigation was followed by a dilute Betadine solution irrigation which was left in place for a minute and half and then followed by saline solution once again. A portion of the capsule was closed using #2 Ethibond. Tensor fascia was closed in a running fashion with #2 Ethibond. Skin was closed with 2-0 Vicryl and a running 3-0 Monocryl. Steri-Strips were applied. A sterile dressing was then placed. The patient tolerated the procedure very well. There were no complications. She was taken from the operating room in stable condition. Serge Deal MD /[id number] MTDRon
[2020-08-18 11:08] VITALS: BP 125/48; PULSE 64
--- NOTE | 2020-08-18 13:04 | PCM.DCSUM1 ---
Discharge Summary - Hospital Course Brief History: 75 y/o female with severe R hip osteoarthritis admitted for surgical management following right total hip arthroplasty Diagnosis: Stroke: No Modified Dunn Scale: No Symptoms at All Modified Dunn Scale Score: 0 - Discharge Data Discharge Date: 08/18/20 Discharge Disposition: Home, W Home Health Agency 06 Condition: Good - Referral to Home Health Date of Face to Face Encounter: 08/18/20 Reason for Homebound Status: Able to safely ambulate, perform ADLs with minimal assistance Primary Care Physician: Noemi Ibrahim MD Skilled Need: Physical therapy, dressing changes, ADLs - Discharge Diagnosis/Problem(s) (1) Status post total hip replacement, right SNOMED Code(s): 380643754350, [id number] ICD Code: Z96.641 - PRESENCE OF RIGHT ARTIFICIAL HIP JOINT Status: Acute Current Visit: Yes (2) Acute post-hemorrhagic anemia SNOMED Code(s): 885559160 ICD Code: D62 - ACUTE POSTHEMORRHAGIC ANEMIA Status: Acute Current Visit: Yes - Patient Summary/Data Operative Procedure(s) Performed: Right total hip arthroplasty Consults: Consultations 08/15/20 09:22 Consult to Case Management/Merchandise Coordinator [CONS] Routine Comment: Physician Instructions: Discharge placement post hip surgery Service(s) to be Consulted: Case Management PT Evaluation and Treatment [CONS] Routine Please Evaluate and Treat. PT Reason for Consult: Ambulation Discharge Disposition: Home w Home Health Special Instructions: posterior hip precautions, WBAT This query below is only for informational purposes and is not editable. PT Evaluation and Treatment [CONS] Routine Please Evaluate and Treat. PT Reason for Consult: Post op Ortho Surgery Hip Pending Discharge: Yes, 2- -3 days Special Instructions: Schedule first outpatient P.T. appointment 3 - 5 days post discharge This query below is only for informational purposes and is not editable. 08/15/20 09:26 OT Evaluation and Treatment [CONS] Routine Please Evaluate and Treat. OT Reason for Consult: ADL's Special Instructions: Status post Hip Surgery This query below is only for informational purposes and is not editable. 08/15/20 12:26 PT Evaluation and Treatment [CONS] Routine Please Evaluate and Treat. PT Reason for Consult: Ambulation Discharge Disposition: Home w Home Health Special Instructions: posterior hip precautions, WBAT This query below is only for informational purposes and is not editable. Admission Diagnosis/Problem: Osteoarthritis 02/ 12:27 Consult to Case Management/Merchandise Coordinator [CONS] Routine Comment: Physician Instructions: Discharge placement post hip surgery Service(s) to be Consulted: Case Management PT Evaluation and Treatment [CONS] Routine Please Evaluate and Treat. PT Reason for Consult: Post op Ortho Surgery Hip Pending Discharge: Yes, 2- -3 days Special Instructions: Schedule first outpatient P.T. appointment 3 - 5 days post discharge This query below is only for informational purposes and is not editable. Admission Diagnosis/Problem: Osteoarthritis Hospital Course: Patient is a pleasant 75 y/o female, s/p R total hip arthroplasty, discharging on POD#3. Patient surgery went well with no complications. Patient struggled with post-operative pain management. Additional toradol and morphine were administered the evening of surgery, which controlled the pain, but appeared to make patient confused and disoriented for the rest of the evening and throughout POD#1. By POD#2, confusion and disorientation seemed to resolve; patient has since been alert and oriented to self, place, and time. Aside from the evening of surgery and with physical therapy ambulation, patient reports pain has been well managed. Did have a drop in HgB on POD#1; attributed to acute post-hemorrhagic anemia following surgery. Patient has been tolerating regular diet well with no nausea/emesis. Delgado was pulled on POD#2. Dressing change performed on POD #2; incision was intact without surrounding erythema, drainage, nor warmth to touch. Does have significant bruising of R hip. Mild pedal edema of R foot. On POD#1, due to confusion and some orthostatic hypotension, unable to complete ambulation past 18 ft with physical therapy. Patient status changed from same day surgery to inpatient to allow further physical and occupational therapy services to assure patient had the skills she needed to be safe for discharge. By POD#2, was able to ambulate 150 ft with FWW with physical therapy. On POD #3 able to complete stairs safely. Also participated in occupational therapy on POD#1,2,3. With a sock aid, was able to complete a majority of her ADLs with minimal assistance. - Patient Instructions Diet: Usual Diet as Tolerated Activity: Apply Ice, Elevate Extremity, Full Weight Bearing Driving: Do Not Drive Showering/Bathing: Shower in AM Wound/Incision Care: Keep Operative Site/Wound Site Clean and Dry Notify Provider of: Fever, Increased Pain, Swelling and Redness, Drainage Other/Special Instructions: Take 1 Aspirin BID until seen at 2 wk follow up with orthopedics for DVT/VTE prophylaxis - Discharge Plan *PRESCRIPTION DRUG MONITORING PROGRAM REVIEWED*: Not Applicable *COPY OF PRESCRIPTION DRUG MONITORING REPORT IN PATIENT STEPHIE: Not Applicable Home Medications: Home Meds Calcium Carbonate/Vitamin D3 [Calcium 600 + Vit D 200] 1 tab PO DAILY 03/21/17 [History] Multivitamin [Multivitamins] 1 tab PO DAILY 03/21/17 [History] Simvastatin [Zocor] 40 mg PO DAILY 03/21/17 [History] Fenofibrate 160 mg PO BEDTIME 03/17/18 [History] Ascorbic Acid [Vitamin C] 500 mg PO BID 12/29/18 [History] Garlic 1,000 mg PO BID 12/29/18 [History] Hydroxyurea 500 mg PO BID 08/15/20 [History] Acetaminophen/HYDROcodone [[place] 325-5 MG] 1 - 2 tab PO Q6H PRN #36 tab 08/18/20 [Rx] Aspirin 81 mg PO BID 08/18/20 [History] Oxygen Therapy Mode: Room Air Referrals: Serge Deal MD [Physician] - 08/30/20 12:45 pm (Please arrive 15 minutes early to register for your appointment.) - Discharge Summary/Plan Comment DC Time >30 min.: No Discharge Summary/Plan Comment: -Discharge today to home with home health referral -Prescription sent for pain medication by Dr. Deal -Educated patient to take 1 Aspirin BID until 2 week follow up with orthopedics for DVT/VTE prophylaxis -Continue with Nozin spray upon discharge -Follow up with orthopedics scheduled for 08/30/20. Encouraged to call if concerns or questions arise prior to scheduled apt -Patient agreeable and expressed understanding of this plan - Patient Data Vitals - Most Recent: Last Vital Signs Temp 96.8 F L 08/18/20 11:05 Pulse 64 08/18/20 11:05 Resp 16 08/18/20 11:05 BP 125/48 L 08/18/20 11:05 Pulse Ox 96 08/18/20 11:05 Weight - Most Recent: 144 lb 4.787 oz I&O - Last 24 hours: Intake & Output 08/17/20 08/18/20 08/18/20 22:59 06:59 14:59 Intake Total 400 240 Output Total 800 450 500 Balance -800 -50 -260 Med Orders - Current: Current Medications Acetaminophen (Tylenol) 650 mg PO Q4H PRN PRN Reason: Pain/Fever Last Admin: 08/17/20 20:13 Dose: 650 mg Documented by: Hydrocodone Bitart/Acetaminophen ([place] 325-5 Mg) 1 tab PO Q4H PRN PRN Reason: Pain (mild 1-3) Last Admin: 08/18/20 07:04 Dose: 1 tab Documented by: Bandage/Support Products ( Nasal Floor Finisher Helper) 1 applic NASBOTH BID [facility] Stop: 08/22/20 21:01 Last Admin: 08/18/20 08:01 Dose: 1 applic Documented by: Docusate Sodium (Colace) 100 mg PO DAILY [facility] Last Admin: 08/18/20 08:02 Dose: 100 mg Documented by: Enoxaparin Sodium (Lovenox) 30 mg SUBCUT DAILY [facility] Last Admin: 08/18/20 08:03 Dose: 30 mg Documented by: Hydroxyurea (Hydrea) 500 mg PO BID [facility] Last Admin: 08/18/20 08:03 Dose: 500 mg Documented by: Sodium Chloride (Normal Saline) 1,000 mls @ 125 mls/hr IV ASDIRECTED [facility] Last Admin: 08/15/20 14:16 Dose: 125 mls/hr Documented by: Ketorolac Tromethamine (Toradol) 15 mg IVPUSH Q8H PRN PRN Reason: Pain (mild 1-3) Stop: 08/20/20 16:35 Last Admin: 08/17/20 20:12 Dose: 15 mg Documented by: Magnesium Hydroxide (Milk Of Magnesia) 30 ml PO Q6H PRN PRN Reason: Stool Softener Morphine Sulfate (Morphine) 2 mg IV Q1H PRN PRN Reason: Pain Last Admin: 08/15/20 18:31 Dose: 2 mg Documented by: Ondansetron HCl (Zofran) 4 mg IVPUSH Q6H PRN PRN Reason: Nausea/Vomiting Simvastatin (Zocor) 40 mg PO DAILY [facility] Last Admin: 08/18/20 08:02 Dose: 40 mg Documented by: Discontinued Medications Bandage/Support Products ( Nasal Floor Finisher Helper) 1 applic NASBOTH BID [facility] Last Admin: 08/15/20 06:32 Dose: 1 applic Documented by: Ephedrine Sulfate (Ephedrine Sulfate) Confirm Administered Dose 50 mg .ROUTE .STK-MED ONE Stop: 08/15/20 08:18 Fentanyl (Sublimaze) Confirm Administered Dose 100 mcg .ROUTE .STK-MED ONE Stop: 08/15/20 07:21 Cefazolin Sodium/Dextrose 2 gm (/ Premix) 50 mls @ 100 mls/hr IV ONETIME ONE Stop: 08/15/20 07:59 Last Admin: 08/15/20 07:50 Dose: 100 mls/hr Documented by: Lactated Ringer's (Ringers, Lactated) 500 mls @ 999 mls/hr IV ASDIRECTED ONE Stop: 08/15/20 07:00 Last Admin: 08/15/20 06:47 Dose: 999 mls/hr Documented by: Lactated Ringer's (Ringers, Lactated) Confirm Administered Dose 1,000 mls @ as directed .ROUTE .STK-MED ONE Stop: 08/15/20 08:15 Cefazolin Sodium/Dextrose 1 gm (/ Premix) 50 mls @ 100 mls/hr IV Q8H [facility] Stop: 08/16/20 06:29 Last Admin: 08/16/20 05:41 Dose: 100 mls/hr Documented by: Ketorolac Tromethamine (Toradol) 30 mg IVPUSH ONETIME ONE Stop: 08/15/20 17:07 Last Admin: 08/15/20 17:30 Dose: 30 mg Documented by: Midazolam HCl (Versed 1 Mg/Ml) Confirm Administered Dose 2 mg .ROUTE .STK-MED ONE Stop: 08/15/20 07:21 Midazolam HCl (Versed 1 Mg/Ml) Confirm Administered Dose 2 mg .ROUTE .STK-MED ONE Stop: 08/15/20 08:45 Morphine Sulfate (Morphine) 1 mg IV Q1H PRN PRN Reason: Pain Last Admin: 08/15/20 16:43 Dose: 1 mg Documented by: Oxycodone/Acetaminophen (Percocet 325-5 Mg) 1 - 2 tab PO Q4H PRN PRN Reason: Pain Last Admin: 08/16/20 06:41 Dose: 2 tab Documented by: Povidone Iodine (Betadine 10% Soln) Confirm Administered Dose 1 ml .ROUTE .STK- MED ONE Stop: 08/15/20 06:40 Last Admin: 08/15/20 08:32 Dose: 30 ml Documented by: Propofol (Diprivan 20 Ml) Confirm Administered Dose 200 mg .ROUTE .STK-MED ONE Stop: 08/15/20 07:21
== END 2020-08-18 14:43 | disposition home health service (06) | DRG 470 ==
LOC: JP.SDS 05:43 → JP.MS 05:43 → EDSTATUS 07:30 → JP.MS 09:22 → JP.SDS 09:22 → JP.MS 12:26
PROVIDERS: ADMIT Specialist; ATTEND Specialist
PROC: 0SR901Z Replacement of Right Hip Joint with Metal Synthetic Substitute, Open Approach (ICD-10-PCS; principal; 2020-08-15)
DX: M16.11 Unilateral primary osteoarthritis, right hip (principal); D62 Acute posthemorrhagic anemia; R41.0 Disorientation, unspecified; I95.1 Orthostatic hypotension; E66.3 Overweight; E83.52 Hypercalcemia; M17.11 Unilateral primary osteoarthritis, right knee; M75.41 Impingement syndrome of right shoulder; D69.6 Thrombocytopenia, unspecified; E78.5 Hyperlipidemia, unspecified; Z95.1 Presence of aortocoronary bypass graft; Z88.1 Allergy status to other antibiotic agents; Z79.899 Other long term (current) drug therapy; Z87.891 Personal history of nicotine dependence; Z68.25 Body mass index [BMI] 25.0-25.9, adult
CPT/HCPCS: 36415; 51702; 73501-26-RT; 73501-RT; 80053; 85027; 86850; 86900; 86901; 97110-GP; 97116-GP; 97161-GP; 97165-GO; 97530-GP; 97535-GO; 97535-GP; A9270-GY; C1713; C1776; J0690; J1650; J1885; J2250; J2270; J2704; J3010; J7030; J7120